=== PATIENT | male | born 1980 | race Caucasian/White ===

== ENCOUNTER 2021-10-06 15:56 | Inpatient (IN) ==
[2021-10-06] MEDS: FLAGYL IV PREMIX 500 MG BAG 500 MG/100 ML BAG IV SCH ×2 (17:37→21:00)
[2021-10-06] MEDS: D5 1/2 NS 1,000 ML 1,000 ML IV SCH (17:37)
[2021-10-06 17:51] LABS: BASOPHILS % (AUTO) 0.3 % (0.2-1.0); EOSINOPHILS % (AUTO) 0.2 % (0.9-2.9); HEMATOCRIT 42.4 % (42.0-54.0); HEMOGLOBIN 14.6 g/dL (13.5-18.0); LYMPHOCYTES # (AUTO) 1.4 X10^3/uL (1.3-2.9); LYMPHOCYTES % (AUTO) 10.3 % (21.0-51.0); MEAN CORPUSCULAR HEMOGLOBIN 29.1 pg (27.0-34.0); MEAN CORPUSCULAR HGB CONC 34.5 g/dL (33.0-35.0); MEAN CORPUSCULAR VOLUME 84.4 fL (80.0-100.0); MEAN PLATELET VOLUME 7.5 fL (7.4-11.0); MONOCYTES # (AUTO) 0.9 x10^3/uL (0.3-0.8); MONOCYTES % (AUTO) 6.6 % (0.0-13.0); NEUTROPHILS # (AUTO) 11.1 x10^3/uL (2.2-4.8); NEUTROPHILS % (AUTO) 82.6 % (42.0-75.0); RED BLOOD COUNT 5.03 X10^6/uL (4.7-6.0); RED CELL DISTRIBUTION WIDTH 13.9 % (11.6-16.5); WHITE BLOOD COUNT 13.5 X10^3/uL (3.6-10.0)
[2021-10-06 18:02] LABS: ALANINE AMINOTRANSFERASE 60 Units/L (12-78); ALBUMIN 3.7 g/dL (3.4-5.0); ALKALINE PHOSPHATASE 95 Units/L (46-116); ASPARTATE AMINO TRANSFERASE 28 Units/L (15-37); BLOOD UREA NITROGEN 13 mg/dL (7-18); CALCIUM 8.5 mg/dL (8.5-10.1); CHLORIDE 100 mmol/L (98-107); CREATININE 1.06 mg/dL (0.70-1.30); SODIUM 136 mmol/L (136-145); TOTAL PROTEIN 7.2 g/dL (6.4-8.2); eGFR NON BLACK RACES > 60 (>60)
[2021-10-06 18:16] VITALS: BMI 32.1
[2021-10-06] MEDS: ZOFRAN INJ 4 MG VIAL IVP PRN (19:00)
[2021-10-06] MEDS: DILAUDID INJ IVP PRN (19:08)
[2021-10-06] MEDS: TYLENOL 325 MG TAB PO PRN (19:45)
[2021-10-06] MEDS: ZOSYN VIAL 3.375 GRAMS 3.375 G in NS 100 ML IV 100 ML IV SCH (21:29)
[2021-10-07] MEDS: D5 1/2 NS 1,000 ML 1,000 ML IV SCH ×3 (00:10→17:18)
[2021-10-07] MEDS: DILAUDID INJ IVP PRN ×3 (02:01→15:09)
[2021-10-07] MEDS: ZOFRAN INJ 4 MG VIAL IVP PRN ×4 (02:02→20:54)
[2021-10-07] MEDS: OFIRMEV IV 1000 MG VIAL 1,000 MG/100 ML VIAL IV PRN ×2 (02:13→21:38)
[2021-10-07 05:08] LABS: BASOPHILS # (AUTO) 0.1 X10^3/uL (0.0-0.1); EOSINOPHILS % (AUTO) 0.2 % (0.9-2.9); HEMATOCRIT 39.9 % (42.0-54.0); HEMOGLOBIN 13.6 g/dL (13.5-18.0); LYMPHOCYTES # (AUTO) 2.1 X10^3/uL (1.3-2.9); LYMPHOCYTES % (AUTO) 14.4 % (21.0-51.0); MEAN CORPUSCULAR HEMOGLOBIN 28.6 pg (27.0-34.0); MEAN CORPUSCULAR HGB CONC 34.1 g/dL (33.0-35.0); MEAN CORPUSCULAR VOLUME 83.9 fL (80.0-100.0); MEAN PLATELET VOLUME 7.9 fL (7.4-11.0); MONOCYTES % (AUTO) 6.7 % (0.0-13.0); NEUTROPHILS # (AUTO) 11.3 x10^3/uL (2.2-4.8); NEUTROPHILS % (AUTO) 77.7 % (42.0-75.0); RED BLOOD COUNT 4.76 X10^6/uL (4.7-6.0); WHITE BLOOD COUNT 14.6 X10^3/uL (3.6-10.0)
[2021-10-07] MEDS: FLAGYL IV PREMIX 500 MG BAG 500 MG/100 ML BAG IV SCH ×3 (05:12→21:43)
[2021-10-07] MEDS: ZOSYN VIAL 3.375 GRAMS 3.375 G in NS 100 ML IV 100 ML IV SCH ×3 (05:12→21:43)
[2021-10-07 05:31] LABS: ALANINE AMINOTRANSFERASE 46 Units/L (12-78); ALBUMIN 3.1 g/dL (3.4-5.0); ALKALINE PHOSPHATASE 82 Units/L (46-116); ASPARTATE AMINO TRANSFERASE 19 Units/L (15-37); BLOOD UREA NITROGEN 13 mg/dL (7-18); CALCIUM 8.1 mg/dL (8.5-10.1); CHLORIDE 102 mmol/L (98-107); COR CA(FOR HYPOALB) 8.8 mg/dL (8.5-10.1); COR NA(FOR HYPERGLY) 137 mmol/L (136-145); CREATININE 1.09 mg/dL (0.70-1.30); SODIUM 137 mmol/L (136-145); TOTAL PROTEIN 6.5 g/dL (6.4-8.2); eGFR NON BLACK RACES > 60 (>60)
--- NOTE | 2021-10-07 06:42 | RAD ---
HISTORYAbdominal painSTUDYKUBCOMPARISONNoneFIND INGSAbdominal gas pattern is nonspecific and nonobstructive. No abnormal masses or abnormal calcifications are identified. Regional skeleton is intact.IMPRESSIONUnremarkable KUBElectronically signed by: BELL LONG (Oct 07, 2021 06:41:57)
[2021-10-07] MEDS: CLEOCIN 600 MG IV PREMIX 600 MG/50 ML BAG IV SCH ×2 (15:10→21:42)
--- NOTE | 2021-10-07 15:23 | DR.PROGNOT ---
Hospital Progress Notes - Progress Note for Day of: Progress Note Date: 10/07/21 - Chief Complaint Chief Complaint: still with moderate , severe abdominal pain .. no nausea or vomiting . had tempr 101 last night .. passing flatus , no BM yet . WBC 14.3 .. normal lytes and LFT .. - Past Medical Family Social History Past Med/Fam/Surg Hx: No changes since H&P Allergies: Allergies No Known Drug Allergies Allergy (Verified 10/06/21 16:26) - Review Of Systems ROS: No change since H&P - Vital Signs Vital Signs: Temperature 99.4 F Pulse Rate [Left] 106 Respiratory Rate 18 Blood Pressure [Left Arm] 141/76 Blood Pressure [Right Arm] 130/69 O2 Sat by Pulse Oximetry 93 - Physical Exam Oriented: Normal Eyes: Normal Ear: Normal Nose: Normal Throat: Normal Respiratory: Normal Cardiovascular: Normal : Normal GI:Auscultation: Decreased GI:Palpation: Other (Lt and LLQ tenderness with full abdomen .. BS_ ) Speech Pattern: Clear, Appropriate - Laboratory and Diagnostics Result Diagrams: 10/07/21 04:22 10/07/21 04:22 Labs: Laboratory WBC 14.6 X10^3/uL (3.6-10.0) H 10/07/21 04: RBC 4.76 X10^6/uL (4.7-6.0) 10/07/21 04:22 Hgb 13.6 g/dL (13.5-18.0) 10/07/21 04:22 Hct 39.9 % (42.0-54.0) L 10/07/21 04: MCV 83.9 fL (80.0-100.0) 10/07/21 04:22 MCH 28.6 pg (27.0-34.0) 10/07/21 04:22 MCHC 34.1 g/dL (33.0-35.0) 10/07/21 04: RDW 14.0 % (11.6-16.5) 10/07/21 04: Plt Count 303 X10^3/uL (150.0-450.0) 10/07/21 04:22 MPV 7.9 fL (7.4-11.0) 10/07/21 04:22 Neut % (Auto) 77.7 % (42.0-75.0) H 10/07/21 04: Lymph % (Auto) 14.4 % (21.0-51.0) L 10/07/21 04:22 [place] % (Auto) 6.7 % (0.0-13.0) 10/07/21 04:22 Eos % (Auto) 0.2 % (0.9-2.9) L 10/07/21 04: Baso % (Auto) 1.0 % (0.2-1.0) 10/07/21 04:22 Neut # (Auto) 11.3 x10^3/uL (2.2-4.8) H 10/07/21 04: Lymph # (Auto) 2.1 X10^3/uL (1.3-2.9) 10/07/21 04:22 [place] # (Auto) 1.0 x10^3/uL (0.3-0.8) H 10/07/21 04: Eos # (Auto) 0.0 x10^3/uL (0.0-0.2) 10/07/21 04:22 Baso # (Auto) 0.1 X10^3/uL (0.0-0.1) 10/07/21 04:22 Absolute Nucleated RBC 0.0 /100WBC 10/07/21 04:22 Sodium 137 mmol/L (136-145) 10/07/21 04:22 Corrected Sodium 137 mmol/L (136-145) 10/07/21 04:22 Potassium 3.5 mmol/L (3.5-5.1) 10/07/21 04:22 Chloride 102 mmol/L (98-107) 10/07/21 04:22 Carbon Dioxide 26.0 mmol/L (21-32) 10/07/21 04:22 BUN 13 mg/dL (7-18) 10/07/21 04:22 Creatinine 1.09 mg/dL (0.70-1.30) 10/07/21 04:22 Est GFR (MDRD) Af Amer > 60 (>60) 10/07/21 04:22 Est GFR (MDRD) Non-Af > 60 (>60) 10/07/21 04:22 Glucose 117 mg/dL (65-99) H 10/07/21 04:22 Calcium 8.1 mg/dL (8.5-10.1) L 10/07/21 04:22 Corrected Calcium 8.8 mg/dL (8.5-10.1) 10/07/21 04:22 Total Bilirubin 2.00 mg/dL (0.2-1.0) H 10/07/21 04:22 AST 19 Units/L (15-37) 10/07/21 04:22 ALT 46 Units/L (12-78) 10/07/21 04:22 Alkaline Phosphatase 82 Units/L (46-116) 10/07/21 04:22 Total Protein 6.5 g/dL (6.4-8.2) 10/07/21 04:22 Albumin 3.1 g/dL (3.4-5.0) L 10/07/21 04:22 Globulin 3.4 g/dL (2.5-4.5) 10/07/21 04:22 Albumin/Globulin Ratio 0.9 Ratio (1.1-2.1) L 10/07/21 04:22 SARS CoV-2 RNA Rapid BENSON Negative (NEGATIVE) 10/06/21 17:42 - Assessment and Plan 1: acute sigmoid diverticulitis with sealed perforations and peritonitius .. same IV ABT .added Clindamycin 600 q 8 h. only water for now....
[2021-10-07] MEDS ORDERED: PHENERGAN INJ 25 MG IM PRN (20:54)
[2021-10-08] MEDS: D5 1/2 NS 1,000 ML 1,000 ML IV SCH ×4 (01:47→17:17)
[2021-10-08] MEDS: ZOSYN VIAL 3.375 GRAMS 3.375 G in NS 100 ML IV 100 ML IV SCH ×3 (05:04→21:03)
[2021-10-08] MEDS: FLAGYL IV PREMIX 500 MG BAG 500 MG/100 ML BAG IV SCH ×3 (05:04→21:02)
[2021-10-08] MEDS: CLEOCIN 600 MG IV PREMIX 600 MG/50 ML BAG IV SCH ×3 (05:04→21:02)
[2021-10-08] MEDS ORDERED: K-DUR TAB 20 MEQ PO PRN (06:55)
[2021-10-08] MEDS ORDERED: MICRO K EXTEN CAP 10 MEQ PO PRN (06:55)
[2021-10-08] MEDS ORDERED: K-RIDER 10 MEQ/NS 100 ML 10 MEQ/100 ML BAG IV PRN (06:55)
[2021-10-08] MEDS ORDERED: KLOR-CON PO PRN (06:55)
[2021-10-08] MEDS ORDERED: POTASSIUM CHLORIDE LIQ 20 MEQ UDC PO PRN (06:55)
[2021-10-08] MEDS ORDERED: POTASSIUM CHL 60 MEQ/NS 0.45% 500 ML IV PRN (06:55)
[2021-10-08] MEDS ORDERED: POTASSIUM CHL 40 MEQ/NS 0.45% 500 ML IV PRN (06:55)
[2021-10-08 07:20] LABS: BASOPHILS % (AUTO) 0.1 % (0.2-1.0); EOSINOPHILS # (AUTO) 0.1 x10^3/uL (0.0-0.2); EOSINOPHILS % (AUTO) 0.4 % (0.9-2.9); HEMATOCRIT 38.9 % (42.0-54.0); HEMOGLOBIN 13.5 g/dL (13.5-18.0); LYMPHOCYTES # (AUTO) 1.3 X10^3/uL (1.3-2.9); LYMPHOCYTES % (AUTO) 8.6 % (21.0-51.0); MEAN CORPUSCULAR HGB CONC 34.8 g/dL (33.0-35.0); MEAN CORPUSCULAR VOLUME 83.1 fL (80.0-100.0); MEAN PLATELET VOLUME 7.5 fL (7.4-11.0); MONOCYTES # (AUTO) 0.9 x10^3/uL (0.3-0.8); MONOCYTES % (AUTO) 5.8 % (0.0-13.0); NEUTROPHILS # (AUTO) 13.3 x10^3/uL (2.2-4.8); NEUTROPHILS % (AUTO) 85.1 % (42.0-75.0); RED BLOOD COUNT 4.68 X10^6/uL (4.7-6.0); RED CELL DISTRIBUTION WIDTH 13.8 % (11.6-16.5); WHITE BLOOD COUNT 15.6 X10^3/uL (3.6-10.0)
[2021-10-08 07:53] LABS: ALANINE AMINOTRANSFERASE 34 Units/L (12-78); ALBUMIN 2.8 g/dL (3.4-5.0); ALKALINE PHOSPHATASE 81 Units/L (46-116); ASPARTATE AMINO TRANSFERASE 16 Units/L (15-37); BLOOD UREA NITROGEN 9 mg/dL (7-18); CALCIUM 8.3 mg/dL (8.5-10.1); CARBON DIOXIDE 28.8 mmol/L (21-32); COR CA(FOR HYPOALB) 9.3 mg/dL (8.5-10.1); CREATININE 0.99 mg/dL (0.70-1.30); TOTAL PROTEIN 6.4 g/dL (6.4-8.2); eGFR NON BLACK RACES > 60 (>60)
[2021-10-08 08:46] LABS: CHLORIDE 102 mmol/L (98-107); SODIUM 137 mmol/L (136-145)
--- NOTE | 2021-10-08 08:52 | DR.PROGNOT ---
Hospital Progress Notes - Progress Note for Day of: Progress Note Date: 10/08/21 - Chief Complaint Chief Complaint: less abdominal pain today .. vomited once last night . had low grade fever .. passing flatus and had small BM. WBC 14.3 .. normal lytes and LFT .. - Past Medical Family Social History Past Med/Fam/Surg Hx: No changes since H&P Allergies: Allergies No Known Drug Allergies Allergy (Verified 10/06/21 16:26) - Review Of Systems ROS: No change since H&P - Vital Signs Vital Signs: Temperature 98.2 F Pulse Rate [Left] 84 Respiratory Rate 18 Blood Pressure [Left Arm] 108/60 Blood Pressure [Right Arm] 130/69 O2 Sat by Pulse Oximetry 97 - Physical Exam Oriented: Normal Eyes: Normal Ear: Normal Nose: Normal Throat: Normal Respiratory: Normal Cardiovascular: Normal : Normal GI:Auscultation: Decreased GI:Palpation: Other (Lt and LLQ tenderness with full abdomen .. BS_ ) GI: Tenderness: Diffuse (full and guarding abdomen.. no rebound .. BS+) Speech Pattern: Clear, Appropriate - Laboratory and Diagnostics Result Diagrams: 10/08/21 06:11 10/08/21 06:11 Labs: Laboratory WBC 15.6 X10^3/uL (3.6-10.0) H 10/08/21 06:11 RBC 4.68 X10^6/uL (4.7-6.0) L 10/08/21 06:11 Hgb 13.5 g/dL (13.5-18.0) 10/08/21 06:11 Hct 38.9 % (42.0-54.0) L 10/08/21 06:11 MCV 83.1 fL (80.0-100.0) 10/08/21 06:11 MCH 29.0 pg (27.0-34.0) 10/08/21 06:11 MCHC 34.8 g/dL (33.0-35.0) 10/08/21 06:11 RDW 13.8 % (11.6-16.5) 10/08/21 06:11 Plt Count 283 X10^3/uL (150.0-450.0) 10/08/21 06:11 MPV 7.5 fL (7.4-11.0) 10/08/21 06:11 Neut % (Auto) 85.1 % (42.0-75.0) H 10/08/21 06:11 Lymph % (Auto) 8.6 % (21.0-51.0) L 10/08/21 06:11 [place] % (Auto) 5.8 % (0.0-13.0) 10/08/21 06:11 Eos % (Auto) 0.4 % (0.9-2.9) L 10/08/21 06:11 Baso % (Auto) 0.1 % (0.2-1.0) L 10/08/21 06:11 Neut # (Auto) 13.3 x10^3/uL (2.2-4.8) H 10/08/21 06:11 Lymph # (Auto) 1.3 X10^3/uL (1.3-2.9) 10/08/21 06:11 [place] # (Auto) 0.9 x10^3/uL (0.3-0.8) H 10/08/21 06:11 Eos # (Auto) 0.1 x10^3/uL (0.0-0.2) 10/08/21 06:11 Baso # (Auto) 0.0 X10^3/uL (0.0-0.1) 10/08/21 06:11 Absolute Nucleated RBC 0.0 /100WBC 10/08/21 06:11 Sodium 137 mmol/L (136-145) 10/08/21 06:11 Corrected Sodium TNP 10/08/21 06:11 Potassium 3.8 mmol/L (3.5-5.1) 10/08/21 06:11 Chloride 102 mmol/L (98-107) 10/08/21 06:11 Carbon Dioxide 28.8 mmol/L (21-32) 10/08/21 06:11 BUN 9 mg/dL (7-18) 10/08/21 06:11 Creatinine 0.99 mg/dL (0.70-1.30) 10/08/21 06:11 Est GFR (MDRD) Af Amer > 60 (>60) 10/08/21 06:11 Est GFR (MDRD) Non-Af > 60 (>60) 10/08/21 06:11 Glucose 110 mg/dL (65-99) H 10/08/21 06:11 Calcium 8.3 mg/dL (8.5-10.1) L 10/08/21 06:11 Corrected Calcium 9.3 mg/dL (8.5-10.1) 10/08/21 06:11 Magnesium 2.0 mg/dL (1.7-2.9) 10/08/21 06:11 Total Bilirubin 1.80 mg/dL (0.2-1.0) H 10/08/21 06:11 AST 16 Units/L (15-37) 10/08/21 06:11 ALT 34 Units/L (12-78) 10/08/21 06:11 Alkaline Phosphatase 81 Units/L (46-116) 10/08/21 06:11 Total Protein 6.4 g/dL (6.4-8.2) 10/08/21 06:11 Albumin 2.8 g/dL (3.4-5.0) L 10/08/21 06:11 Globulin 3.6 g/dL (2.5-4.5) 10/08/21 06:11 Albumin/Globulin Ratio 0.8 Ratio (1.1-2.1) L 10/08/21 06:11 SARS CoV-2 RNA Rapid BENSON Negative (NEGATIVE) 10/06/21 17:42 - Assessment and Plan 1: acute sigmoid diverticulitis with sealed perforations and peritonitius .. same IV ABT .added Clindamycin 600 q 8 h. on clear liquid diet , same IVF and ABT ..
[2021-10-08] MEDS ORDERED: NORCO 5/325 MG TAB PO PRN (09:52)
[2021-10-08] MEDS ORDERED: MORPHINE SULFATE INJ 2 MG INJ IVP PRN (09:52)
[2021-10-08] MEDS: TYLENOL 325 MG TAB PO PRN (14:46)
[2021-10-09] MEDS: FLAGYL IV PREMIX 500 MG BAG 500 MG/100 ML BAG IV SCH (05:20)
[2021-10-09] MEDS: ZOSYN VIAL 3.375 GRAMS 3.375 G in NS 100 ML IV 100 ML IV SCH (05:20)
[2021-10-09] MEDS: CLEOCIN 600 MG IV PREMIX 600 MG/50 ML BAG IV SCH (05:20)
[2021-10-09] MEDS: D5 1/2 NS 1,000 ML 1,000 ML IV SCH ×2 (05:20→09:07)
[2021-10-09 06:23] LABS: BASOPHILS % (AUTO) 0.2 % (0.2-1.0); EOSINOPHILS # (AUTO) 0.1 x10^3/uL (0.0-0.2); EOSINOPHILS % (AUTO) 0.8 % (0.9-2.9); HEMATOCRIT 38.9 % (42.0-54.0); HEMOGLOBIN 13.4 g/dL (13.5-18.0); LYMPHOCYTES # (AUTO) 1.5 X10^3/uL (1.3-2.9); MEAN CORPUSCULAR HEMOGLOBIN 28.8 pg (27.0-34.0); MEAN CORPUSCULAR HGB CONC 34.5 g/dL (33.0-35.0); MEAN CORPUSCULAR VOLUME 83.4 fL (80.0-100.0); MEAN PLATELET VOLUME 7.5 fL (7.4-11.0); MONOCYTES # (AUTO) 0.7 x10^3/uL (0.3-0.8); MONOCYTES % (AUTO) 4.9 % (0.0-13.0); NEUTROPHILS # (AUTO) 11.5 x10^3/uL (2.2-4.8); NEUTROPHILS % (AUTO) 83.1 % (42.0-75.0); RED BLOOD COUNT 4.66 X10^6/uL (4.7-6.0); RED CELL DISTRIBUTION WIDTH 13.9 % (11.6-16.5); WHITE BLOOD COUNT 13.9 X10^3/uL (3.6-10.0)
[2021-10-09 06:46] LABS: ALANINE AMINOTRANSFERASE 27 Units/L (12-78); ALBUMIN 2.8 g/dL (3.4-5.0); ALKALINE PHOSPHATASE 77 Units/L (46-116); ASPARTATE AMINO TRANSFERASE 18 Units/L (15-37); BLOOD UREA NITROGEN 7 mg/dL (7-18); CALCIUM 8.1 mg/dL (8.5-10.1); CARBON DIOXIDE 26.7 mmol/L (21-32); CHLORIDE 104 mmol/L (98-107); COR CA(FOR HYPOALB) 9.1 mg/dL (8.5-10.1); COR NA(FOR HYPERGLY) 139 mmol/L (136-145); CREATININE 0.97 mg/dL (0.70-1.30); SODIUM 139 mmol/L (136-145); TOTAL PROTEIN 6.4 g/dL (6.4-8.2); eGFR NON BLACK RACES > 60 (>60)
[2021-10-09 07:57] VITALS: BP 125/66
[2021-10-09] MEDS ORDERED: LIPITOR TAB 40 MG PO SCH (09:00)
[2021-10-09] MEDS ORDERED: CARDIZEM CD 120 MG 24-HR PO SCH (09:00)
== END 2021-10-09 10:10 | disposition home or self-care (01) | DRG 395 ==
LOC: MED/SURG → OBSVTOIN 15:59
PROVIDERS: ADMIT Surgery; ATTEND Surgery
DX: I10 Essential (primary) hypertension; Z20.822 Contact with and (suspected) exposure to COVID-19; E80.6 Other disorders of bilirubin metabolism; R10.84 Generalized abdominal pain; E78.00 Pure hypercholesterolemia, unspecified; Z86.16 Personal history of COVID-19; R73.03 Prediabetes; K63.1 Perforation of intestine (nontraumatic)